=== PATIENT | male | born 1965 | race Caucasian/White ===

== ENCOUNTER → 2024-10-23 | Outpatient (CLI) | payer BC, SELFPAY ==
[2024-10-23 12:19] LABS: Absolute Neutrophil Count 4.3 X10^3/uL (2.0-7.7); Basophil# 0.04 X10^3/uL; Basophil% 0.6 % (0-1); Eosinophil# 0.02 X10^3/uL; Eosinophils% 0.3 % (0-5); Hematocrit 46.4 % (40-54); Hemoglobin 15.7 g/dL (13.0-16.5); Lymphocyte % 26.8 % (19-41); Mean Corp Hgb Conc 33.8 g/dL (32-36); Mean Corpuscular Hgb 29.3 pg (27.0-32.0); Mean Corpuscular Volume 86.6 fL (80-94); Mean Platelet Vol. 10.5 fl (6.2-12.0); Monocyte# 0.31 X10^3/uL; Monocyte% 4.9 % (0-10); NRBC Flagged by Analyzer 0 % (0-5); Neutrophil # 4.25 X10^3/uL (2.7-7.7); Neutrophil % 67.1 % (47-70); Platelet Count 259 K/mm3 (150-450); RBC Distribution Width CV 12.5 % (11.6-14.6); RBC Distribution Width SD 39.1 fl (35.1-43.9); Red Blood Count 5.36 M/mm3 (4.6-6.2); White Blood Count 6.3 K/mm3 (4.4-11.0)
[2024-10-23 12:36] LABS: AST(SGOT) 8 U/L (15-37); Alanine Aminotransfer ALT/SGPT 29 U/L (16-61); Albumin, Serum 3.7 g/dL (3.2-5.0); Alkaline Phosphatase 87 U/L (45-117); Anion Gap 6 (5-15); BUN 12 mg/dL (7-18); BUN/Creat Ratio 15.2 RATIO (10-20); Calcium,Total 9.1 mg/dL (8.5-10.1); Chloride 104 mmol/L (98-107); Cholesterol 215 mg/dL (200); Creatinine, Serum 0.79 mg/dL (0.70-1.30); EST Glomerular Filtration Rate 106 mL/min (>60); Est Glom Filt Rate - Afr Amer 129 mL/min (>60); Globulin 3.7 g/dL (2.2-4.2); Glucose 231 mg/dL (74-106); High Density Lipoprotein 48 mg/dL; PSA,Total- Diagnostic 2.56 ng/mL (0.0-4.0); Protein, Total 7.4 g/dL (6.4-8.2); Sodium Level 136 mmol/L (136-145); Triglycerides 161 mg/dL; Very Low Density Lipoprotein 32 mg/dL (5-40)
== END | disposition home or self-care (01) ==
LOC: MFPLAB 10:55
PROVIDERS: PCP Family Medicine; Referring Provider Family Medicine; Visit Provider Family Medicine
DX: Z00.00 Encounter for general adult medical examination without abnormal findings (principal); Z13.1 Encounter for screening for diabetes mellitus; Z13.220 Encounter for screening for lipoid disorders; Z12.5 Encounter for screening for malignant neoplasm of prostate
CPT/HCPCS: 36415; 80053; 80061; 83036; 84153; 85025

== ENCOUNTER 2024-12-05 07:04 | Day surgery (SDC) | payer BC, SELFPAY ==
--- NOTE | 2024-11-30 22:58 | PAT.ANESEVAL ---
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 When Was Last Pacemaker Check QUESTION #4 FULL TEXT: You/Your Family Experience fever (hyperthermia) with Anesthesia Last Oral Intake Last Oral intake: Last Oral Intake NPO since Meds taken in AM with sips of water? Meds patient instructed to take am of surgery PONV PONV - server administrator: PONV - server administrator Female No 11/30/24 14:45 HX of Motion Sickness No 11/30/24 14:45 HX of N/V After Surgery No 11/30/24 14:45 Non-Smoker No 11/30/24 14:45 Duration of Surgery greater No 11/30/24 14:45 than 60 minutes Number of Risk Factors PONV Score Height & Weight Height & Weight: Anesthesia: Height & Weight Height 6 ft 11/10/24 10:05 Respiratory Assessment Respiratory Assessment - server administrator: Respiratory Tract Infection Hx - server administrator Hx Respiratory Tract Infection No 11/30/24 14:45 STOP Sleep Apnea STOP Sleep Apnea - server administrator: STOP Sleep Apnea - server administrator Hx Hypertension No 11/30/24 14:45 Hx Sleep Apnea No 11/30/24 14:45 CPAP BIPAP Do you snore loudly (louder No 11/30/24 14:45 than talking or can be heard Do you often feel tired/ No 11/30/24 14:45 fatigued/ sleepy during daytime? Has anyone observed you stop No 11/30/24 14:45 breathing during sleep? STOP Results Negative 11/30/24 14:45 QUESTION #5 FULL TEXT : Do you snore loudly (louder than talking or can be heard through closed doors)? 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 Specify any problems Hx of Preganancy in last 3 N/A 11/30/24 14:45 Months Nurse Filling Out Transfusion NBUCHER 11/30/24 14:45 & Questions: Date: 11/30/24 11/30/24 14:45 Time: 14:46 11/30/24 14:45 Patient unable to answer at this time (ie. confused, unrespo /Reproduction History /Reproductive History - server administrator: /Reproductive Hx- server administrator Hx Now No 11/30/24 14:45 Gestational Age (in weeks): EDC: Hx Hx Para Hx Section SAB No 11/30/24 14:45 [facility] Medical History Wears contact lenses Non-smoker Chewing tobacco nicotine dependence Diabetes Home Medications ?Medication ?Instructions ?Recorded ?Last Taken ?Type glipizide 5 mg tablet 5 mg PO QDAY 11/10/24 Unknown History metformin 500 mg tablet 500 mg PO BID 11/10/24 Unknown History Allergy/AdvReac Type Severity Reaction Status Date / Time No Known Allergies Allergy Verified 12/05/24 07:14 Surgical History History of arthroscopic knee surgery Social History household members: other details: Single number of children: 0 current occupational status: employed Smoking Status: Never smoker Smokeless tobacco user: chewing tobacco alcohol intake: never substance use type: does not use Audit: Pertinent Findings Pertinent Findings Additional pertinent findings: 10/23/2024. Hemoglobin A1c is 10.0. surgeon aware. prefers to proceed Recommendation Anesthesia Recommendation Anesthesia recommendation: F/U recommended (Please inform procedural doctor of patient's hemoglobin A1c at 10.0.)
--- NOTE | 2024-12-01 12:53 | PAT.ANESEVAL ---
Pre-Assessment Diagnosis/Proposed Procedure Planned Operative Procedure(s): CSCOPE Anesthesia History Anesthesia History - manager clinical pharmacy: Anesthesia History - manager clinical pharmacy Hx Hospitalization No 11/30/24 14:45 Any Problems With Anesthesia No 11/30/24 14:45 Cholinesterase deficiency No 11/30/24 14:45 You/Your Family Experience No 11/30/24 14:45 fever (hyperthermia) with Relationship Recent Exposure to Contagious Disease Does patient have nerve No 11/30/24 14:45 stimulator Patient instructed to have device shut off --Does patient have Pacemaker or ICD? When Was Last Pacemaker Check QUESTION #4 FULL TEXT: You/Your Family Experience fever (hyperthermia) with Anesthesia Last Oral Intake Last Oral intake: Last Oral Intake NPO since Meds taken in AM with sips of water? Meds patient instructed to take am of surgery PONV PONV - manager clinical pharmacy: PONV - manager clinical pharmacy Female No 11/30/24 14:45 HX of Motion Sickness No 11/30/24 14:45 HX of N/V After Surgery No 11/30/24 14:45 Non-Smoker No 11/30/24 14:45 Duration of Surgery greater No 11/30/24 14:45 than 60 minutes Number of Risk Factors PONV Score Height & Weight Height & Weight: Anesthesia: Height & Weight Height 6 ft 11/10/24 10:05 Respiratory Assessment Respiratory Assessment - manager clinical pharmacy: Respiratory Tract Infection Hx - manager clinical pharmacy Hx Respiratory Tract Infection No 11/30/24 14:45 STOP Sleep Apnea STOP Sleep Apnea - manager clinical pharmacy: STOP Sleep Apnea - manager clinical pharmacy Hx Hypertension No 11/30/24 14:45 Hx Sleep Apnea No 11/30/24 14:45 CPAP BIPAP Do you snore loudly (louder No 11/30/24 14:45 than talking or can be heard Do you often feel tired/ No 11/30/24 14:45 fatigued/ sleepy during daytime? Has anyone observed you stop No 11/30/24 14:45 breathing during sleep? STOP Results Negative 11/30/24 14:45 QUESTION #5 FULL TEXT : Do you snore loudly (louder than talking or can be heard through closed doors)? 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 Specify any problems Hx of Preganancy in last 3 N/A 11/30/24 14:45 Months Nurse Filling Out Transfusion NBUCHER 11/30/24 14:45 & Questions: Date: 11/30/24 11/30/24 14:45 Time: 14:46 11/30/24 14:45 Patient unable to answer at this time (ie. confused, unrespo /Reproduction History /Reproductive History - manager clinical pharmacy: /Reproductive Hx- manager clinical pharmacy Hx Now No 11/30/24 14:45 Gestational Age (in weeks): EDC: Hx Hx Para Hx Section SAB No 11/30/24 14:45 COUNTS INCLUDE 234 BEDS AT THE [facility] Medical History (Updated 11/30/24 @ 14:49 by Joanie Naik) Wears contact lenses Non-smoker Chewing tobacco nicotine dependence Diabetes Home Medications ?Medication ?Instructions ?Recorded ?Last Taken ?Type glipizide 5 mg tablet 5 mg PO QDAY 11/10/24 Unknown History metformin 500 mg tablet 500 mg PO BID 11/10/24 Unknown History Allergy/AdvReac Type Severity Reaction Status Date / Time No Known Allergies Allergy Verified 11/30/24 14:44 Surgical History (Updated 11/30/24 @ 14:49 by Joanie Naik) History of arthroscopic knee surgery Social History (Updated 11/10/24 @ 10:00 by Gloria Sun) household members: other details: Single number of children: 0 current occupational status: employed Smoking Status: Never smoker Smokeless tobacco user: chewing tobacco alcohol intake: never substance use type: does not use Audit: Pertinent Findings HISTORY of Pertinent Findings History of Pertinent Findings: Additional Pertinent Findings Additional pertinent findings 10/23/2024. Hemoglobin A1c 12/01/24 12:09 is 10.0. surgeon aware. prefers to proceed Recommendation Anesthesia Recommendation Anesthesia recommendation: OPTIMIZED for anesthesia
[2024-12-05] VITALS (8 sets, daily range): BP systolic 96–128; BP diastolic 61–88; PULSE 70–77; RESP 16–20; TEMP 36.1–36.6; O2SAT 98–99; BMI 30.6
--- NOTE | 2024-12-05 | IMM_PTH ---
PATIENT: MACRINA GRAY LOC: EN U#:[id number] AGE/SX: 59/M ROOM: RE12/05/[address]: Dr. Kyle Gracia MD : 1965 BED: DIS: 12/05/2024 SPEC #: [id number] RECD: 12/06/24 11:58 STATUS: GONZÁLEZ REQ #: [id number] TATIANA: 12/05/24 00:[address]: Kyle Gracia DEPT: IMMUNOHISTOCHEMISTRY RECD BY: Keyon Elizondo ENTERED: 12/06/24 11:59 SP TYPE: IMMUNO OTHR DR: Leland Scott MD Tissues: A - Cecum, NOS B - Sigmoid colon biopsy Procedures: SMA (add) MSH2 (add) MLH-1 (add) MSH6 (add) Anti-PMS2 (add) CD31 (add) CD34 (add) CK8 (add) DESMIN (add) KI-67 (add) P53 (add) Vimentin (add) FACTOR VIII (add) Pankeratin (initial) MOC-31 (add) HER-2-RELL (initial) S-100 (add) PHYSICIAN & INSTITUTION [place] [id number] SPECIMEN INFORMATION: Tissue Source: A- Cecum polyp, B- Sigmoid polyp Clinical Info: Encounter for screening for malignant neoplasm of colon Specimen Number: [id number] A, B CPT code: 60773l2,26782t45 METHODOLOGY: Deparaffinized sections of prefer/formalin-fixed tissue or PAP/DQ stained slides are incubated with monoclonal/polyclonal antibodies/oligonucleotide probes. Localization is made via biotin free immunoperoxidase method. Appropriate controls are performed and reacted as expected. Results on target cell population are indicated in the following table: RESULTS: ANTIBODY / CLONE RESULT Block A1 Her-2neu (CB11) negative (null pattern) MOC-31 (4561) positive MLH-1 (M1) positive MSH2 (25D12) positive MSH6 (44) positive PMS2 (GNZ8748) positive Ki-67 (30-9) positive, moderate P53 (DO-7) positive, focal (wild type pattern) Block B 1 AE1-3 (AE1/AE3/PCK26) negative CK8 (66amtmS18) negative Vimentin (V9) positive CD31 (DEV/70A) negative Factor VIII (R Ag) negative CD34 (QBEnd-10) negative Actin (1A4) positive Desmin (CE-R-11) positive S-100 (4C4.9) negative Ki-67 (30-9) positive, <1% Testing for Her2 by IHC if equivocal, recommend testing for Her2 by FISH(remove/not needed) These tests were developed and their performance characteristics determined by [facility]. They may not have been cleared or approved by the U.S. Food and Drug Administration. The FDA has determined that such clearance or approval is not necessary. The above immunohistochemical/dualISH markers are ordered and reviewed by the Pathologist. INTERPRETATION: A. 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 Result of Microsatellite Instability Study: Negative (no loss of mismatch protein; no microsatellite instability detected). See comment. B. Sigmoid polyp, polypectomy: Submucosal leiomyoma. A. COMMENT: MSI markers are evaluated in the area of invasive adenocarcinoma. SJ.mr 12/07/2024
--- NOTE | 2024-12-05 | COLBX_PTH ---
PATIENT: MACRINA GRAY LOC: EN U#:[id number] AGE/SX: 59/M ROOM: RE12/05/[address]: Dr. Kyle Gracia MD : 1965 BED: DIS: 12/05/2024 SPEC #: [id number] RECD: 12/05/24 12:52 STATUS: GONZÁLEZ REEdward #: [id number] TATIANA: 12/05/24 00:[address]: Kyle Gracia DEPT: SURGICAL PATHOLOGY RECD BY: Erasto Khanna ENTERED: 12/05/24 12:53 SP TYPE: COLON BX OTHR DR: Leland Scott MD Tissues: A - Cecum, NOS B - Sigmoid colon biopsy Procedures: Surgery Specimen Level IV HEADER OPERATION: Colonoscopy, polypectomy, spot marking PRE-OP DIAGNOSIS: Encounter for screening for malignant neoplasm of colon TISSUE SUBMITTED: A- Cecum polyp, B- Sigmoid polyp MICROSCOPIC DIAGNOSIS A. 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 See cancer summary in the comment section. B. Sigmoid polyp, polypectomy: Submucosal lipoma. See comment. 12/06/2024 COMMENT A. COLON AND RECTAL POLYP CANCER SUMMARY: Tumor site - Cecum Specimen integrity - Partially fragmented Histologic type - Adenocarcinoma Histologic grade - Grade 1, well differentiated Size of invasive carcinoma - 0.4 x 0.2cm (measures microscopically) Microscopic tumor extension - Tumor invades muscularis mucosa. Lymph-Vascular invasion - Not identified Type of polyp in which invasive carcinoma arose - Tubulovillous adenoma with high grade dysplasia. Polyp size - 2.2 x 1.5 x 1.5cm (polyp with a focus of invasive carcinoma), smaller polyp- 0.7 x 0.5 x 0.4cm and multiple smaller fragments- 2 x 0.3 x 0.1cm (consists of fragments of tubulovillous adenoma). Polyp configuration: sessile Margins: Margins are uninvolved by invasive carcinoma. The invasive carcinoma is 1.5cm from the cauterized margin. Margin status noninvasive tumor - cannot be assessed (specimen is received in multiple fragments). Additional pathologic findings - None Special study- Immunohistochemistry ([id number]) for microsatellite instability (mismatch repair of protein) will be performed and the results will be reported separately. The above summary is in compliance with [employer] [place] [employer] (CAP) Cancer Protocols Checklist and [place] Joint Committee on Cancer (AJCC), Staging Manual, 8th Ed. B. Immunohistochemistry ([id number]) supports the above diagnosis. Case has been reviewed in consultation with Dr. Levy who concurs with the above diagnosis. IDC:FA MICROSCOPIC DESCRIPTION Slides are reviewed. GROSS DESCRIPTION A. Received in fixative is one container labeled with the patient's name and designated Cecum polyp. The specimen consists of a barraza-pink polyp measuring 2.2 x 1.5 x 1.5cm. Also present in the container is a smaller polyp measuring 0.7 x 0.5 x 0.4cm. Also present in the container are multiple smaller fragments of barraza soft tissue mixed with fecal material measuring in aggregate 2 x 0.3 x 0.1cm. The presumed base of the largest polyp is inked black. The entire specimen is submitted in three cassettes as follows: 1&2- largest polyp, 3- smaller polyp and smaller fragments of tissue. B. Received in fixative is one container labeled with the patient's name and designated Sigmoid polyp. The specimen consists of multiple irregular fragments of light barraza soft tissue mixed with fecal material that in aggregate measure 1.2 x 0.5 x 0.2 cm. The specimen is totally submitted in one cassette. 12/05/2024 TC:0 CPT:94911w6
--- NOTE | 2024-12-05 07:53 | PCM.PRE.AN2 ---
ASA Classification* ASA Classification ASA Classification: 2 Assessment & Plan Anesthesia* Anesthesia Assessment Anesthesia Assessment: Discussed sedation and/or anesthesia options, risks, benefits, and alternatives with patient/parents/legal guardian/POA. Questions invited. The patient/parents/legal guardian/POA seems to understand and agrees to proceed with anesthesia plan. Reviewed the physical assessment, medical history, allergy history and patient home medications list prior to surgery/procedure/anesthetic and documented any changes. Performed airway and anesthesia risk assessments. Anesthesia Type Anesthesia Type: MAC History Source History Obtained from:: Patient and Chart Anesthesia Focused Assessment* Temperature: 97.8 F Pulse Rate: 77 Blood Pressure: 128/88 Respiratory Rate: 16 Pulse Ox: 99 Oxygen Delivery Method: Room Air Airway Assessment Mouth opens: >3 cm Mallampati Score: III Teeth Condition: Lower (Patient has 1 implant on the front incisor. It is tight.) Neck Range of motion (ROM): Limited ROM (Somewhat decreased extension) Focused Labs Anesthesia Preop lab: CBC WBC 6.3 K/mm3 (4.4-11.0) 10/23/24 10:56 10/23/24 RBC 5.36 M/mm3 (4.6-6.2) 10/23/24 10:56 10/23/24 Hgb 15.7 g/dL (13.0-16.5) 10/23/24 10:56 10/23/24 Hct 46.4 % (40-54) 10/23/24 10:56 10/23/24 Plt Count 259 K/mm3 (150-450) 10/23/24 10:56 10/23/24 CHEMISTRY Potassium 4.0 mmol/L (3.5-5.1) 10/23/24 10:56 10/23/24 Sodium 136 mmol/L (136-145) 10/23/24 10:56 10/23/24 BUN 12 mg/dL (7-18) 10/23/24 10:56 10/23/24 Creatinine 0.79 mg/dL (0.70-1.30) 10/23/24 10:56 10/23/24 Glucose 231 mg/dL (74-106) H 10/23/24 10:56 10/23/24 COAG Pre-Assessment Diagnosis/Proposed Procedure Planned Operative Procedure(s): CSCOPE Anesthesia History 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 When Was Last Pacemaker Check QUESTION #4 FULL TEXT: You/Your Family Experience fever (hyperthermia) with Anesthesia Last Oral Intake Last Oral intake: Last Oral Intake NPO since 00:00 12/05/24 07:30 Meds taken in AM with sips of No 12/05/24 07:30 water? Meds patient instructed to take am of surgery PONV PONV - athlete manager: PONV - athlete manager Female No 11/30/24 14:45 HX of Motion Sickness No 11/30/24 14:45 HX of N/V After Surgery No 11/30/24 14:45 Non-Smoker No 11/30/24 14:45 Duration of Surgery greater No 11/30/24 14:45 than 60 minutes Number of Risk Factors PONV Score Height & Weight Height & Weight: Anesthesia: Height & Weight Height 6 ft 12/05/24 07:30 Weight: 102.4 kg 12/05/24 07:30 Body Mass Index (BMI) 30.6 12/05/24 07:30 Respiratory Assessment Respiratory Assessment - athlete manager: Respiratory Tract Infection Hx - athlete manager Hx Respiratory Tract Infection No 11/30/24 14:45 STOP Sleep Apnea STOP Sleep Apnea - athlete manager: STOP Sleep Apnea - athlete manager Hx Hypertension No 11/30/24 14:45 Hx Sleep Apnea No 11/30/24 14:45 CPAP BIPAP Do you snore loudly (louder No 11/30/24 14:45 than talking or can be heard Do you often feel tired/ No 11/30/24 14:45 fatigued/ sleepy during daytime? Has anyone observed you stop No 11/30/24 14:45 breathing during sleep? STOP Results Negative 11/30/24 14:45 QUESTION #5 FULL TEXT : Do you snore loudly (louder than talking or can be heard through closed doors)? 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 Specify any problems Hx of Preganancy in last 3 N/A 11/30/24 14:45 Months Nurse Filling Out Transfusion NBUCHER 11/30/24 14:45 & Questions: Date: 11/30/24 11/30/24 14:45 Time: 14:46 11/30/24 14:45 Patient unable to answer at this time (ie. confused, unrespo /Reproduction History /Reproductive History - athlete manager: /Reproductive Hx- athlete manager Hx Now No 11/30/24 14:45 Gestational Age (in weeks): EDC: Hx Hx Para Hx Section SAB No 11/30/24 14:45 [facility] Medical History (Updated 11/30/24 @ 14:49 by Joanie Naik) Wears contact lenses Non-smoker Chewing tobacco nicotine dependence Diabetes Home Medications ?Medication ?Instructions ?Recorded ?Last Taken ?Type glipizide 5 mg tablet 5 mg PO QDAY 11/10/24 Unknown History metformin 500 mg tablet 500 mg PO BID 11/10/24 Unknown History Allergy/AdvReac Type Severity Reaction Status Date / Time No Known Allergies Allergy Verified 12/05/24 07:14 Surgical History (Updated 11/30/24 @ 14:49 by Joanie Naik) History of arthroscopic knee surgery Social History (Updated 11/10/24 @ 10:00 by Gloria Sun) household members: other details: Single number of children: 0 current occupational status: employed Smoking Status: Never smoker Smokeless tobacco user: chewing tobacco alcohol intake: never substance use type: does not use Review of Systems (Anesthesia) ROS Narrative System reviewed and no additional complaints, except as documented.
[2024-12-05 07:57] LABS: Bedside Glucose 84 mg/dL (74-106)
--- NOTE | 2024-12-05 08:27 | HP.PCM_ITS ---
HPI - General General Date of Admission: 12/05/24 Date of Service: 12/05/24 Chief Complaint: Screening colonoscopy HPI Narrative MACRINA GRAY, is a 59 M who presents for screening colonoscopy. He has no prior colonoscopy. No family history of colon polyps or colon cancers. No GI symptoms to speak of. [facility] Medical History Wears contact lenses Non-smoker Chewing tobacco nicotine dependence Diabetes Home Medications ?Medication ?Instructions ?Recorded ?Last Taken ?Type glipizide 5 mg tablet 5 mg PO QDAY 11/10/24 Unknow n History metformin 500 mg tablet 500 mg PO BID 11/10/24 Unkno wn History Allergy/AdvReac Type Severity Reaction Status Date / Time No Known Allergies Allergy Verified 12/05/24 07:14 Surgical History History of arthroscopic knee surgery Social History household members: other details: Single number of children: 0 current occupational status: employed Smoking Status: Never smoker Smokeless tobacco user: chewing tobacco alcohol intake: never substance use type: does not use ROS Constitutional Constitutional: Reports systems reviewed and no addt'l complaints, except as documented Eyes Eyes: Reports systems reviewed and no addt'l complaints, except as documented ENT HEENT: Reports systems reviewed and no addt'l complaints, except as documented Cardiovascular Cardiovascular: Reports systems reviewed and no addt'l complaints, except as documented Respiratory/Chest Respiratory/Chest: Reports systems reviewed and no addt'l complaints, except as documented Gastrointestinal Gastrointestinal: Reports systems reviewed and no addt'l complaints, except as documented Vital Signs Vital Signs Vital Signs: 12/05/24 07:30 12/05/24 07:30 12/05/24 07:58 Temperature 97.8 F 97.8 F Temperature Source Temporal Pulse Rate 77 77 Respiratory Rate 16 16 Respiratory Pattern Normal Blood Pressure 128/88 H 128/88 H Blood Pressure Mean 101 Blood Pressure Source Monitor Blood Pressure Position Semi-Fowlers Blood Pressure Location Left Arm Pulse Ox 99 99 Oxygen Delivery Method Room Air Room Air Weight Weight: 225 lb 12.054 oz Body Mass Index (BMI) 30.6 Physical Exam Const alert, oriented x3 and no apparent distress Results Lab / Micro Data Labs: Laboratory Results - last 24 hr 12/05/24 07:37: POC Glucose 84 Assessment & Plan Assessment/Plan (1) Encounter for screening for malignant neoplasm of colon: PLAN: Plan Patient is a 59-year-old male in need of a screening colonoscopy. He has no prior colonoscopy history. No family history of colon polyps or colon cancers. No GI symptoms. We discussed the details of the planned procedure and he wishes to proceed. This will begin momentarily.
--- NOTE | 2024-12-05 09:37 | OP.COLON_ITS ---
Patient Name: Ovidio Rodriguez Procedure Date: 12/05/2024 8:21 AM Date of : 1965 Age: 59 Procedure: Colonoscopy Indications: Screening for colorectal malignant neoplasm Providers: Kyle Gracia MD Referring MD: Leland Scott Md Medicines: Monitored Anesthesia Care Patient Profile: Refer to note in patient chart for documentation of history and physical. Last Colonoscopy: none. The patient's first colonoscopy is today. Complications: No immediate complications. Estimated blood loss: Minimal. Procedure: Pre-Anesthesia Assessment: - Prior to the procedure, a History and Physical was performed, and patient medications and allergies were reviewed. The patient's tolerance of previous anesthesia was also reviewed. The risks and benefits of the procedure and the sedation options and risks were discussed with the patient. All questions were answered, and informed consent was obtained. Prior Anticoagulants: The patient has taken no anticoagulant or antiplatelet agents. ASA Grade Assessment: II - A patient with mild systemic disease. After reviewing the risks and benefits, the patient was deemed in satisfactory condition to undergo the procedure. After I obtained informed consent, the scope was passed under direct vision. Throughout the procedure, the patient's blood pressure, pulse, and oxygen saturations were monitored continuously. The colonoscope was introduced through the anus and advanced to the cecum, identified by appendiceal orifice and ileocecal valve. The ileocecal valve, appendiceal orifice, and rectum were photographed. The entire colon was well visualized. The colonoscopy was performed without difficulty. The patient tolerated the procedure well. The quality of the bowel preparation was adequate. Moderate Sedation: See the other procedure note for documentation of moderate sedation with intraservice time. Scope In: 8:47:10 AM Scope Out: 9:29:49 AM Total Procedure Duration Time 0 hours 42 minutes 39 seconds Findings: The perianal and digital rectal examinations were normal. Multiple small-mouthed diverticula were found in the sigmoid colon. A 22 mm polyp was found in the cecum. The polyp was semi-pedunculated. The polyp was removed with a hot snare. Resection and retrieval were complete. Verification of patient identification for the specimen was done by the nurse using the patient's name, date and medical record number. Estimated blood loss was minimal. Area was successfully injected with 4 mL Spot (carbon black) for tattooing. Estimated blood loss was minimal. An 8 mm polyp was found in the sigmoid colon. The polyp was semi-pedunculated. The polyp was removed with a hot snare. Resection and retrieval were complete. Verification of patient identification for the specimen was done by the nurse using the patient's name, date and medical record number. Estimated blood loss was minimal. The exam was otherwise without abnormality. Impression: - Diverticulosis in the sigmoid colon. - One 22 mm polyp in the cecum, removed with a hot snare. Resected and retrieved. Injected. - One 8 mm polyp in the sigmoid colon, removed with a hot snare. Resected and retrieved. - The examination was otherwise normal. Recommendation: - Discharge patient to home (ambulatory). - High fiber diet indefinitely. - Await pathology results. - Repeat colonoscopy in 1 year for surveillance. - Return to my office PRN. - Continue present medications. Procedure Code(s): --- Professional --- 52874, Colonoscopy, flexible; with removal of tumor(s), polyp(s), or other lesion(s) by snare technique [id number], Colonoscopy, flexible; with directed submucosal injection(s), any substance Diagnosis Code(s): --- Professional --- Z12.11, Encounter for screening for malignant neoplasm of colon D12.0, Benign neoplasm of cecum K57.30, Diverticulosis of large intestine without perforation or abscess without bleeding D12.5, Benign neoplasm of sigmoid colon CPT copyright 2021 [employer]. All rights reserved. The codes documented in this report are preliminary and upon residential director review may be revised to meet current compliance requirements. Kyle Gracia MD 12/05/2024 9:36:55 AM This report has been signed electronically. Number of Addenda: 0 Note Initiated On: 12/05/2024 8:21 AM
--- NOTE | 2024-12-05 09:37 | OP.CCLET_ITS ---
12/05/2024 Leland Scott Md Re : Colonoscopy procedure for Ovidio Rodriguez Dear Sonia This procedure was performed on Thursday, December 05, 2024. My impressions and recommendations are as follows: Impressions : - Diverticulosis in the sigmoid colon. - One 22 mm polyp in the cecum, removed with a hot snare. Resected and retrieved. Injected. - One 8 mm polyp in the sigmoid colon, removed with a hot snare. Resected and retrieved. - The examination was otherwise normal. Recommendations : - Discharge patient to home (ambulatory). - High fiber diet indefinitely. - Await pathology results. - Repeat colonoscopy in 1 year for surveillance. - Return to my office PRN. - Continue present medications. My findings are described in the full procedure note, which is enclosed. If I can be of further assistance, please feel free to contact me at . Sincerely, Kyle Gracia MD 12/05/2024 9:36:55 AM This report has been signed electronically.
--- NOTE | 2024-12-05 10:30 | PCM.POST.ANE ---
Anesthesia: Postop Eval I Current Vital Signs Temperature: 96.9 F Pulse Rate: 70 Blood Pressure: 118/80 Respiratory Rate: 20 Pulse Ox: 98 Assessment Airway patent: Yes Spontaneous unlabored respirations: Yes nausea: No Vomiting: No Anesthesia Complication: No Fluid Hydration Crystalloid volume administer (ml): 10 Total IV fluid infused: 10 Progress Note Anesthesia document: Postop Eval 1 completed: Yes
--- NOTE | 2024-12-05 10:31 | POSTOPAN2_ITS ---
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.CSIR Spontaneous unlabored Yes 12/05/24 10:30 WAFER POLISHING LEAD WORKER.CSIR respirations Mental status nausea No 12/05/24 10:30 WAFER POLISHING LEAD WORKER.CSIR Vomiting No 12/05/24 10:30 WAFER POLISHING LEAD WORKER.CSIR Anesthesia Postop Eval I: Fluid Summary Crystalloid volume administer 10 12/05/24 10:30 WAFER POLISHING LEAD WORKER.CSIR (ml) Colloids volume administered ( ml) Blood Product volume administered (ml) Total IV fluid infused 10 12/05/24 10:30 WAFER POLISHING LEAD WORKER.CSIR Anesthesia Postop Eval I: Summary Notes Anesthesia Complication No 12/05/24 10:30 WAFER POLISHING LEAD WORKER.CSIR Anesthesia Complication Comment: Post-operative progress note Anesthesia: Postop Eval II Evaluation Mental status: Awake and Calm Pain Level: 0 nausea: No Vomiting: No
--- NOTE | 2024-12-05 10:31 | PCM.POSTANE2 ---
Anesthesia Postop Eval I Sum Postop Eval Completion status Anesthesia document: Postop Eval 1 completed: Yes Anesthesia Postop Eval I Summary Anesthesia Postop Eval I Summary: Anesthesia Postop Eval I: Assessment Summary Airway patent Yes 12/05/24 10:30 WAITER/WAITRESS ROOM SERVICE.CSIR Spontaneous unlabored Yes 12/05/24 10:30 WAITER/WAITRESS ROOM SERVICE.CSIR respirations Mental status nausea No 12/05/24 10:30 WAITER/WAITRESS ROOM SERVICE.CSIR Vomiting No 12/05/24 10:30 WAITER/WAITRESS ROOM SERVICE.CSIR Anesthesia Postop Eval I: Fluid Summary Crystalloid volume administer 10 12/05/24 10:30 WAITER/WAITRESS ROOM SERVICE.CSIR (ml) Colloids volume administered ( ml) Blood Product volume administered (ml) Total IV fluid infused 10 12/05/24 10:30 WAITER/WAITRESS ROOM SERVICE.CSIR Anesthesia Postop Eval I: Summary Notes Anesthesia Complication No 12/05/24 10:30 WAITER/WAITRESS ROOM SERVICE.CSIR Anesthesia Complication Comment: Post-operative progress note Anesthesia: Postop Eval II Evaluation Mental status: Awake and Calm Pain Level: 0 nausea: No Vomiting: No
== END 2024-12-05 10:12 | disposition home or self-care (01) ==
LOC: EN 07:05 → AC 07:07
PROVIDERS: PCP Family Medicine; Referring Provider Family Medicine; Visit Provider Surgery
PROC: 0DJD8ZZ Inspection of Lower Intestinal Tract, Via Natural or Artificial Opening Endoscopic (ICD-10-PCS; CPT 45378; principal; 2024-12-05 08:10)
DX: Z12.11 Encounter for screening for malignant neoplasm of colon (principal); C18.0 Malignant neoplasm of cecum; E11.9 Type 2 diabetes mellitus without complications; D12.5 Benign neoplasm of sigmoid colon; K57.30 Diverticulosis of large intestine without perforation or abscess without bleeding; F17.220 Nicotine dependence, chewing tobacco, uncomplicated; Z79.84 Long term (current) use of oral hypoglycemic drugs
CPT/HCPCS: 45385; 45381; 81002; 82962; 88305; 88341; 88342; A4216; A4648

== ENCOUNTER → 2024-12-22 | Outpatient (CLI) | payer BC, SELFPAY ==
[2024-12-22 10:41] LABS: Hemoglobin A1c 6.6 % (3.8-5.6)
[2024-12-23 04:07] LABS: Carcinoembryonic Antigen 1.7 ng/mL (0.0-4.7)
== END | disposition home or self-care (01) ==
LOC: MFPLAB 09:03
PROVIDERS: Surgery; PCP Family Medicine; Referring Provider Family Medicine; Visit Provider Family Medicine
DX: E11.65 Type 2 diabetes mellitus with hyperglycemia (principal); C18.9 Malignant neoplasm of colon, unspecified
CPT/HCPCS: 36415; 82378; 83036

== ENCOUNTER 2025-02-14 16:26 | Inpatient (IN) | payer BC, SELFPAY ==
--- NOTE | 2025-02-08 11:07 | EKG12_ITS ---
Test Reason : PREOP Blood Pressure : */* mmHG Vent. Rate : 88 BPM Atrial Rate : 88 BPM P-R Int : 150 ms QRS Dur : 80 ms QT Int : 364 ms P-R-T Axes : 53 63 48 degrees QTcB Int : 440 ms Normal sinus rhythm Normal ECG Confirmed by MALLORY KENT, GOYO ([id number]), editor at large GAVIOTA ANDERSEN ([id number]) on 02/09/2025 7:00:39 AM Referred By: Kyle Gracia Confirmed By: GOYO TEJADA MD
[2025-02-08 11:47] LABS: Hemoglobin 14.5 g/dL (13.0-16.5); Mean Corp Hgb Conc 33.7 g/dL (32-36); Mean Corpuscular Hgb 30.2 pg (27.0-32.0); Mean Corpuscular Volume 89.6 fL (80-94); Mean Platelet Vol. 10.1 fl (6.2-12.0); Platelet Count 304 K/mm3 (150-450); RBC Distribution Width CV 13.1 % (11.6-14.6); RBC Distribution Width SD 42.9 fl (35.1-43.9); White Blood Count 8.2 K/mm3 (4.4-11.0)
[2025-02-08 12:22] LABS: Magnesium 2.1 mg/dL (1.5-2.2)
[2025-02-08 13:01] LABS: Anion Gap 12 (5-15); BUN 17 mg/dL (4-19); Calcium,Total 9.5 mg/dL (7.6-11.0); Carbon Dioxide 23.1 mmol/L (21.0-32.0); Chloride 103 mmol/L (98-108); Creatinine, Serum 1.13 mg/dL (0.70-1.20); EST Glomerular Filtration Rate 74 (>60); Glucose 97 mg/dL (70-99); Potassium 4.1 mmol/L (3.3-5.1); Sodium Level 139 mmol/L (133-145)
[2025-02-14] VITALS (16 sets, daily range): BP systolic 88–125; BP diastolic 61–80; PULSE 67–82; RESP 16–18; TEMP 36.4–37.1; O2SAT 95–100; BMI 28.7
[2025-02-14] MEDS: Acetaminophen 500 MG Tablet 1000 MG PO ×3 (06:13→17:54)
[2025-02-14] MEDS: Gabapentin 600 MG Tablet PO (06:13)
[2025-02-14] MEDS: Magnesium 1 GM over 15 mins IV (06:14)
[2025-02-14] MEDS: Lactated Ringers 1,000 ML 40 ML IV ×3 (06:15→11:46)
--- NOTE | 2025-02-14 06:45 | PCM.PRE.AN2 ---
ASA Classification* ASA Classification ASA Classification: 2 Assessment & Plan Anesthesia* Anesthesia Assessment Anesthesia Assessment: Discussed sedation and/or anesthesia options, risks, benefits, and alternatives with patient/parents/legal guardian/POA. Questions invited. The patient/parents/legal guardian/POA seems to understand and agrees to proceed with anesthesia plan. Reviewed the physical assessment, medical history, allergy history and patient home medications list prior to surgery/procedure/anesthetic and documented any changes. Performed airway and anesthesia risk assessments. Anesthesia Type Anesthesia Type: General Anesthesia Focused Assessment* Temperature: 98.7 F Pulse Rate: 74 Blood Pressure: 125/80 Respiratory Rate: 17 Pulse Ox: 100 Airway Assessment Mouth opens: >3 cm Mallampati Score: II Focused Labs Anesthesia Preop lab: CBC WBC 8.2 K/mm3 (4.4-11.0) 02/08/25 11:02/08/25 RBC 4.80 M/mm3 (4.6-6.2) 02/08/25 11:02/08/25 Hgb 14.5 g/dL (13.0-16.5) 02/08/25 11:02/08/25 Hct 43.0 % (40-54) 02/08/25 11:02/08/25 Plt Count 304 K/mm3 (150-450) 02/08/25 11:02/08/25 CHEMISTRY Potassium 4.1 mmol/L (3.3-5.1) 02/08/25 11:02/08/25 Sodium 139 mmol/L (133-145) 02/08/25 11:02/08/25 Magnesium 2.1 mg/dL (1.5-2.2) 02/08/25 11:02/08/25 BUN 17 mg/dL (4-19) 02/08/25 11:02/08/25 Creatinine 1.13 mg/dL (0.70-1.20) 02/08/25 11:02/08/25 Glucose 97 mg/dL (70-99) 02/08/25 11:02/08/25 POC Glucose 84 mg/dL (74-106) 12/05/24 07:37 12/05/24 COAG Pre-Assessment Diagnosis/Proposed Procedure Planned Operative Procedure(s): LAP RIGHT HEMICOLECTOMY WITH ANASTOMOSIS Anesthesia History Anesthesia History - commercial designer: Anesthesia History - commercial designer Hx Hospitalization No 01/31/25 15:09 Any Problems With Anesthesia No 01/31/25 15:09 Cholinesterase deficiency No 01/31/25 15:09 You/Your Family Experience No 01/31/25 15:09 fever (hyperthermia) with Relationship Recent Exposure to Contagious No 02/14/25 06:15 Disease Does patient have nerve No 01/31/25 15:09 stimulator Patient instructed to have device shut off --Does patient have Pacemaker No 02/14/25 06:15 or ICD? When Was Last Pacemaker Check QUESTION #4 FULL TEXT: You/Your Family Experience fever (hyperthermia) with Anesthesia Last Oral Intake Last Oral intake: Last Oral Intake NPO since 03:30 02/14/25 06:15 Meds taken in AM with sips of Yes 02/14/25 06:15 water? Meds patient instructed to see home med list 02/14/25 06:15 take am of surgery PONV PONV - commercial designer: PONV - commercial designer Female No 01/31/25 15:09 HX of Motion Sickness No 01/31/25 15:09 HX of N/V After Surgery No 01/31/25 15:09 Non-Smoker No 01/31/25 15:09 Duration of Surgery greater Yes 01/31/25 15:09 than 60 minutes Number of Risk Factors 1 01/31/25 15:09 PONV Score Low Risk 01/31/25 15:09 Height & Weight Height & Weight: Anesthesia: Height & Weight Height 6 ft 02/14/25 06:15 Weight: 96 kg 02/14/25 06:15 Body Mass Index (BMI) 28.7 02/14/25 06:15 Respiratory Assessment Respiratory Assessment - commercial designer: Respiratory Tract Infection Hx - commercial designer Hx Respiratory Tract Infection No 01/31/25 15:09 STOP Sleep Apnea STOP Sleep Apnea - commercial designer: STOP Sleep Apnea - commercial designer Hx Hypertension No 01/31/25 15:09 Hx Sleep Apnea No 01/31/25 15:09 CPAP BIPAP Do you snore loudly (louder Yes 01/31/25 15:09 than talking or can be heard Do you often feel tired/ No 01/31/25 15:09 fatigued/ sleepy during daytime? Has anyone observed you stop No 01/31/25 15:09 breathing during sleep? STOP Results Negative 01/31/25 15:09 QUESTION #5 FULL TEXT : Do you snore loudly (louder than talking or can be heard through closed doors)? Tobacco Use History Tobacco Use History - commercial designer: Tobacco Use History - commercial designer Tobacco Use Smoking Status Current every day smoker 01/31/25 15:09 Hx Tobacco Use Yes 01/31/25 15:09 Years Smoking Packs Smoked per Day Smoking Cessation Date was within the last 15 years Hx Smoking Cessation Date Hx Smoking Cessation Counseling Hematologic Medial History Hematologic Hx - commercial designer: Hematologic Medical Hx - rn clinical documentation specialist Hx of Blood Transfusion No 01/31/25 15:09 Hx of Transfusion in last 3 No 01/31/25 15:09 Months Date of Last Transfusion (if within last 3 months) Ever experience any problems No 01/31/25 15:09 with transfusion(s)? Specify any problems Hx of Preganancy in last 3 N/A 01/31/25 15:09 Months Nurse Filling Out Transfusion DSCHRIBER 01/31/25 15:09 & Questions: Date: 01/31/25 01/31/25 15:09 Time: 15:11 01/31/25 15:09 Patient unable to answer at this time (ie. confused, unrespo /Reproduction History /Reproductive History - commercial designer: /Reproductive Hx- commercial designer Hx Now No 01/31/25 15:09 Gestational Age (in weeks): EDC: Hx Hx Para Hx Section SAB No 01/31/25 15:09 Active Medications Active Medications: Current Medications Generic Name Dose Route Start Last Admin Trade Name Freq PRN Reason Stop Dose Admin Acetaminophen 1,000 mg 02/14/25 07:30 02/14/25 06:13 Acetaminophen 500 Mg Tablet PO 02/14/25 07:31 1,000 mg PREOP ONE Administration Gabapentin 600 mg 02/14/25 07:30 02/14/25 06:13 Gabapentin 600 Mg Tablet PO 02/14/25 07:31 600 mg PREOP ONE Administration Cefotetan Disodium 2 gm/ 100 mls @ 200 mls/hr 02/14/25 07:30 Sodium Chloride IV 02/14/25 07:59 INTRAOP ONE Lactated Ringer's 1,000 mls @ 40 mls/hr 02/14/25 07:30 02/14/25 06:15 IV 02/15/25 08:29 40 mls/hr .Q25H ONE Administration Lactated Ringer's 1,000 mls @ 40 mls/hr 02/14/25 07:30 IV .Q25H FREDY Magnesium Sulfate 1 gm/ 102 mls @ 408 mls/hr 02/14/25 07:30 02/14/25 06:14 Dextrose IV 02/14/25 07:44 408 mls/hr X1 ONE Administration Insulin Human Lispro 0 unit 02/14/25 07:30 Insulin Lispro 100 Unit/Ml Insuln.Pen SC Q4H PRN PRN BG >/= 180, SEE PROTOCOL Protocol PFSH Medical History Colon cancer Wears contact lenses Chewing tobacco nicotine dependence Diabetes Home Medications ?Medication ?Instructions ?Recorded ?Last Taken ?Type glipizide 5 mg tablet 5 mg PO QDAY DIABETES 11/10/24 02/12/25 History metformin 500 mg tablet 500 mg PO BID DIABETES 11/10/24 02/12/25 History metronidazole 500 mg tablet 500 mg PO .COMPLEX preop #6 tabs 02/12/25 02/14/25 Rx neomycin 500 mg tablet 500 mg PO .COMPLEX pre-op 02/12/25 02/14/25 Rx antibiotics #6 tabs Allergy/AdvReac Type Severity Reaction Status Date / Time No Known Allergies Allergy Verified 02/14/25 06:12 Surgical History Hx of colonoscopy History of arthroscopic knee surgery Social History household members: other details: Single number of children: 0 current occupational status: employed Smoking Status: Current every day smoker tobacco type: smokeless tobacco Smokeless tobacco user: chewing tobacco alcohol intake: never substance use type: does not use Review of Systems (Anesthesia) ROS Narrative System reviewed and no additional complaints, except as documented.
[2025-02-14 06:53] LABS: Bedside Glucose 112 mg/dL (74-106)
--- NOTE | 2025-02-14 07:15 | PCM.HP.STD ---
HPI - General General Date of Admission: 02/14/25 Date of Service: 02/14/25 Chief Complaint: colon CA HPI Narrative MACRINA GRAY, is a 59 M who presents for right colectomy. was found to have cecal polyp that contained small focus or CA. recommended resection [facility] Medical History Colon cancer Wears contact lenses Chewing tobacco nicotine dependence Diabetes Home Medications ?Medication ?Instructions ?Recorded ?Last Taken ?Type glipizide 5 mg tablet 5 mg PO QDAY DIABETES 11/10/24 02/12/25 History metformin 500 mg tablet 500 mg PO BID DIABETES 11/10/24 02/12/25 History metronidazole 500 mg tablet 500 mg PO .COMPLEX preop #6 tabs 02/12/25 02/14/25 Rx neomycin 500 mg tablet 500 mg PO .COMPLEX pre-op 02/12/25 02/14/25 Rx antibiotics #6 tabs Allergy/AdvReac Type Severity Reaction Status Date / Time No Known Allergies Allergy Verified 02/14/25 06:12 Surgical History Hx of colonoscopy History of arthroscopic knee surgery Social History household members: other details: Single number of children: 0 current occupational status: employed Smoking Status: Current every day smoker tobacco type: smokeless tobacco Smokeless tobacco user: chewing tobacco alcohol intake: never substance use type: does not use Vital Signs Vital Signs Vital Signs: 02/14/25 06:15 02/14/25 06:15 02/14/25 06:45 Temperature 98.7 F 98.7 F Temperature Source Temporal Pulse Rate 74 74 Respiratory Rate 17 17 Respiratory Pattern Normal Blood Pressure 125/80 H 125/80 H Blood Pressure Mean 95 Blood Pressure Source Monitor Blood Pressure Position Semi-Fowlers Blood Pressure Location Right Arm Pulse Ox 100 100 Oxygen Delivery Method Room Air Weight Weight: 211 lb 10.3 oz Body Mass Index (BMI) 28.7 Physical Exam Const alert, oriented x3 and no apparent distress Results Lab / Micro Data 02/08/25 11:27 02/08/25 11:27 Labs: Laboratory Results - last 24 hr 02/14/25 06:00: POC Glucose 112 H Assessment & Plan Assessment/Plan (1) Colon cancer: PLAN: lap right colon planned for today
--- NOTE | 2025-02-14 07:30 | COL._PTH ---
PATIENT: MACRINA GRAY LOC: MS3 U#:[id number] AGE/SX: 59/M ROOM: [facility] [place]02/14/[address]: Dr. Kyle Gracia MD : 1965 BED: 1 DIS: 02/16/2025 SPEC #: [id number] RECD: 02/14/25 09:42 STATUS: GONZÁLEZ HANKINS #: [id number] TATIANA: 02/14/25 07:[address]: Kyle Gracia DEPT: SURGICAL PATHOLOGY RECD BY: Cruz Dexter ENTERED: 02/14/25 10:19 SP TYPE: COLON OTHR DR: Leland Scott MD Tissues: A - Colon, NOS Procedures: Surgery Specimen Level HEADER OPERATION: ERAS, laparoscopic, right tan colectomy with anastomosis PRE-OP DIAGNOSIS: Colon cancer TISSUE SUBMITTED: A- Right colon MICROSCOPIC DIAGNOSIS A. Right colon, terminal ileum and appendix, colon cancer, right hemicolectomy: * Negative for adenocarcinoma - see Comment. * Tubular adenoma x1 (0.2 cm), negative for high grade dysplasia. * Sessile serrated lesion x1. * Diverticulosis, abundant tattoo pigment. * Viable end resection and radial margins, negative for neoplasia. * Appendix with no specific pathologic change (incidental). * Fourteen pericolonic lymph nodes negative for metastasis (0/14). 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 MICROSCOPIC DESCRIPTION Slides are reviewed. GROSS DESCRIPTION A. Received in formalin in a container labeled with the patient's name, date of , and right colon is an ileocecectomy specimen received with 2 stapled margins. The specimen consists of a terminal ileum (5.5 x 2.0 cm), colon (13 x 5 cm), attached appendix (6 x 0.6 cm), and attached pericolonic fat (6.5 cm in greatest thickness). The serosa is barraza-pink and predominantly smooth with some areas of creeping fat and a 6.5 x 5.3 cm area of black tattoo ink. The tattoo ink is situated 5.5 cm from the proximal margin and 6.5 cm from the distal margin. The specimen is opened to reveal a 1.6 x 1.0 cm ill-defined, puckered possible scar with an overlying 0.3 x 0.3 x 0.2 cm sessile polyp. The puckered area corresponds to the tattoo ink and is situated 7.3 cm from the proximal margin, 7.5 cm from the distal margin, and approximately 5 cm to the closest pericolonic fat resection margin. Serial sections of the puckered area reveal that it appears confined to the mucosa. Within the large bowel, situated approximately 1.5, 1.8, and 7.5 cm from the puckered area are 3 barraza-pink, sessile possible polyps ranging from 0.2 x 0.2 x 0.2 cm to 0.7 x 0.5 x 0.2 cm. Each is situated greater than 5 cm from the margins and are confined to the mucosa. No distinct mass lesion is grossly recognized. The remaining mucosa is barraza-pink, smooth, and glistening with typical haustral folds and an average wall thickness of 0.7 cm. The appendix is sectioned to reveal a 0.3 cm lumen with unremarkable alvarez. The attached fat is searched for lymph node candidates; 16 pink-valladares, rubbery lymph node candidates are identified ranging from 0.2 x 0.2 x 0.2 cm to 0.7 x 0.7 x 0.6 cm. [employer] sections:A1. Proximal margin, en faceA2. Distal margin, en faceA3. Closest pericolonic fat margin, en faceA4-6. Puckered area, entirely submitted in full-thickness sectionsA7. Adjacent, unremarkable mucosa between puckered area and polypsA8. Sessile polyps x 3, entirely submittedA9. Ileocecal rxbahC51. CeoiwlurG23. 6 lymph located, wholeA 12. 6 lymph node candidates, wholeA 13. 2 lymph node candidates, each bisected and 1 inked blackA 14. 2 lymph node candidates, 1 bisected and inked black and 1 trisected no ink [facility] 02/19/2025 CPT:84130
[2025-02-14] MEDS: Cefotetan 2 GM in 0.9% Normal Saline (100mL MB+) 100 ML IV (07:41)
[2025-02-14] MEDS: 0.9% Normal Saline (Pres. free 10 ML Vial (09:25)
[2025-02-14] MEDS: BUPIVACAINE LIPOSOME/PF 20 ML VIAL OPERA.SITE (09:25)
[2025-02-14] MEDS: Bupivacaine 0.25% 30 ML Vial (09:25)
--- NOTE | 2025-02-14 09:47 | PCM.OPRPT ---
Oncology: Genie Requirements . Oncology surgical intervention performed: Colon resection for colon cancer performed Colon Resection - Colon Cancer: Synoptic Portion: Element Response Options Operation performed with curative intent. Yes Tumor location Cecum Extent of colon and vascular resection Right hemicolectomy ? ileocolic, right colic (if present) Multi Select Codes Digestive Digestive CPT Codes: 45681 Laparo partial colectomy (lap right colectomy with anastomosos ) Endocrine,Ocular,Nerv, Auditory Endocrine,Ocular,Nerv, Auditory CPT Codes: 38642 Tap block unil by injection Operative Report (Standard) Operative Information Date of Procedure: 02/14/25 Pre-Operative Diagnosis: colon cancer Post-Operative Diagnosis: same Surgery/Procedure Performed: 1. laparoscopic right colectomy with anastomosis 2. NATALIIA block delivery stock clerk: Yes Nurse Midwife/Clinical Instructor: Reena Kilgore Tasks completed by assistance specialist: Closing, Hemostasis: Electrocautery, Retracting and Other (holding camera) Additional assistant strength coach?: No Type of Anesthesia: General and Local (NATALIIA) RN Documented Start/Stop Times: Operation Date: 02/14/25 07:30 Case Time Into Pre-Op 02/14/25 05:49 Out of Pre-Op 02/14/25 07:25 Anesthesia Start 02/14/25 07:29 Into Room 02/14/25 07:29 Procedure Start 02/14/25 07:52 Procedure End 02/14/25 09:50 Procedure Start Time: 07:52 Procedure Stop Time: 09:50 Select all DRAINS/GRAFTS/IMPLANTS that apply: None Special Medications: pre op ABX IV Estimated Blood Loss: 40 ml Specimen collected: Yes Description of specimen(s) removed: right colon Description of surgery: The patient is a 59-year-old male who recently underwent a screening colonoscopy and was found to have a fairly sizable cecal polyp. This was removed with a snare.. The base was removed in a somewhat piecemeal manner since this was a fairly sizable polyp and was fairly flat. This was inked for possible later resection if indicated. Pathology came back with a small focus of infiltrating ductal carcinoma measuring about 4 x 2 mm. Since this was consistent with a small malignancy, I recommended a laparoscopic right hemicolectomy. We discussed the details of the planned procedure in the office including the risks benefits and alternatives. He wished to proceed. Patient presents today for elective right colectomy. Preoperative antibiotics were given and a timeout was performed. He was placed supine on the operative table with arms outstretched on arm boards. A general endotracheal anesthesia was induced. His arms were then comfortably tucked at his side. The abdomen was prepped and draped in the usual sterile manner. A 5 mm incision was made just above the umbilicus which a 5 mm trocar was placed optically. This was placed without incident. Once in place the abdomen is then fully insufflated with CO2 gas a 5 mm 0 degree scope was inserted. There were no signs of bowel or vascular injury next 2 additional 5 mm trocars were placed on the right side of the abdomen under direct visualization. These were placed without difficulty. Next, a bilateral laparoscopic tap block was performed using Exparel. This was performed by injecting a total of 40 cc of local/Exparel solution. This was performed laparoscopically by watching the needle inject local anesthetic just above the peritoneum. This was performed along the entire lateral aspect of the abdomen bilaterally. I then later upsized the umbilical trocar to a 10 mm trocar so that we could utilize a 10 mm scope. The patient was placed in some mild Trendelenburg positioning with some roll to the left to provide further exposure to the right colon. The cecum and right colon were readily identifiable. There was quite a bit of ink from the colonoscopy. Much of the right colon was tattooed. Harmonic scalpel was then used to take down the lateral peritoneal attachments of the right colon. This was extended down to the junction with the terminal ileum and this dissection was carried out up to and around the hepatic flexure to improve mobilization. Once sufficient mobilization was performed, the appendix was grasped with a bowel grasper and would be eventually used for retraction of the specimen through a midline incision which was then made. A small midline incision was made using a #15 blade. Bovie electrocautery was then used dissect down through the subcutaneous tissue down to the level of fascia. The fascia was then incised. The abdomen was entered without incident. The right colon specimen was then delivered up and out through the incision. Proximal and distal resection points were selected. Bowel clamps were placed proximally and distally. JOSE 75 stapler was used to transect the colon as well as the small bowel. A LigaSure impact device was then used to take down the mesentery. The specimen was then free and was then taken off the field. Specimen was labeled right colectomy. The anastomosis was then created by first using an Allis clamp on a corner of each staple line. Metzenbaum scissors were then used to excise each corner and enter the bowel. The JOSE stapler was then inserted into each limb of the bowel. The 2 pieces of the stapler were then brought together and clamped down. The stapler was then fired creating the anastomosis. This was performed without incident. 3 Allis clamps were then placed on the open end of the anastomosis and then a TA stapler was fired across the open end of the anastomosis. The crotch of the anastomosis was then reinforced using 3-0 Vicryl. 3-0 Vicryl was then used to close the mesenteric defect in a running manner. This closed the mesenteric defect nicely. The anastomosis appeared healthy and pink. It was widely patent. Hemostasis was excellent. There was returned back into the abdomen. Omentum was then covered over the bowel and then the abdomen was then irrigated with a liter of warm saline. This irrigation fluid was then suctioned out. The midline incision was then closed using a #1 looped PDS. This closed the fascia nicely. Additional local anesthetic containing Exparel was then injected along the incision line. The incision line was then irrigated and then closed with 3-0 Vicryl and then 4-0 Vicryl was run in the skin. 4-0 Vicryl was also used to close the 2 trocar sites. Skin glue was applied as dressing along with a Mepilex dressing along the midline. Patient was awakened from anesthesia. Abdominal binder was placed. He was taken to recovery in good condition A CALL WORKER was utilized as a assistant analyst. His role included assistance with positioning the patient, holding the camera, retraction, assistance with creation of the anastomosis as well as assistance with closure. Surgical Findings: see operative note Complications Complications: No Admit VTE Documentation VTE Present on Admission: No VTE Mechan Device Prophylaxis: SCD's VTE Pharm Prophylaxis ordered?: Yes
--- NOTE | 2025-02-14 10:04 | PCM.POST.ANE ---
Anesthesia: Postop Eval I Current Vital Signs Temperature: 97.6 F Pulse Rate: 82 Blood Pressure: 111/61 Respiratory Rate: 16 Pulse Ox: 96 Oxygen Delivery Method: Room Air Assessment Airway patent: Yes Spontaneous unlabored respirations: Yes Mental status: Awake nausea: No Vomiting: No Anesthesia Complication: No Fluid Hydration Crystalloid volume administer (ml): 1,800 Total IV fluid infused: 1,800 Progress Note Anesthesia document: Postop Eval 1 completed: Yes
[2025-02-14 11:03] LABS: Bedside Glucose 160 mg/dL (74-106)
--- NOTE | 2025-02-14 11:10 | POSTOPAN2_ITS ---
Anesthesia Postop Eval I Sum Postop Eval Completion status Anesthesia document: Postop Eval 1 completed: Yes Anesthesia Postop Eval I Summary Anesthesia Postop Eval I Summary: Anesthesia Postop Eval I: Assessment Summary Airway patent Yes 02/14/25 10:05 [email or web address] [email or web address] Spontaneous unlabored Yes 02/14/25 10:05 FLOOR [email or web address] respirations Mental status Awake 02/14/25 10:05 FLOOR [email or web address] nausea No 02/14/25 10:05 FLOOR [email or web address] Vomiting No 02/14/25 10:05 FLOOR [email or web address] Anesthesia Postop Eval I: Fluid Summary Crystalloid volume administer 1,800 02/14/25 10:05 FLOOR [email or web address] (ml) Colloids volume administered ( ml) Blood Product volume administered (ml) Total IV fluid infused 1,800 02/14/25 10:05 FLOOR [email or web address] Anesthesia Postop Eval I: Summary Notes Anesthesia Complication No 02/14/25 10:05 [email or web address] [email or web address] Anesthesia Complication Comment: Post-operative progress note Anesthesia: Postop Eval II Evaluation Mental status: Awake Pain Level: 0 nausea: No Vomiting: No
--- NOTE | 2025-02-14 11:10 | PCM.POSTANE2 ---
Anesthesia Postop Eval I Sum Postop Eval Completion status Anesthesia document: Postop Eval 1 completed: Yes Anesthesia Postop Eval I Summary Anesthesia Postop Eval I Summary: Anesthesia Postop Eval I: Assessment Summary Airway patent Yes 02/14/25 10:05 COLLECTION SYSTEMS [email or web address] Spontaneous unlabored Yes 02/14/25 10:05 COLLECTION SYSTEMS [email or web address] respirations Mental status Awake 02/14/25 10:05 COLLECTION SYSTEMS [email or web address] nausea No 02/14/25 10:05 COLLECTION SYSTEMS [email or web address] Vomiting No 02/14/25 10:05 COLLECTION SYSTEMS [email or web address] Anesthesia Postop Eval I: Fluid Summary Crystalloid volume administer 1,800 02/14/25 10:05 COLLECTION SYSTEMS [email or web address] (ml) Colloids volume administered ( ml) Blood Product volume administered (ml) Total IV fluid infused 1,800 02/14/25 10:05 COLLECTION SYSTEMS [email or web address] Anesthesia Postop Eval I: Summary Notes Anesthesia Complication No 02/14/25 10:05 COLLECTION SYSTEMS [email or web address] Anesthesia Complication Comment: Post-operative progress note Anesthesia: Postop Eval II Evaluation Mental status: Awake Pain Level: 0 nausea: No Vomiting: No
[2025-02-14] MEDS: Docusate Sodium 100 MG Capsule PO ×2 (12:26→22:06)
[2025-02-14] MEDS: Ketorolac 15 MG/ML Vial IV ×2 (12:26→17:54)
[2025-02-14] MEDS: 0.9% Saline Lock 10 ML Syringe IV (17:55)
[2025-02-15 00:19] VITALS: BP 99/73; PULSE 66; RESP 18; TEMP 36.7; O2SAT 97
[2025-02-15] MEDS: Ketorolac 15 MG/ML Vial IV ×4 (00:28→17:44)
[2025-02-15] MEDS: Acetaminophen 500 MG Tablet 1000 MG PO ×4 (00:28→17:44)
[2025-02-15 05:43] VITALS: BP 101/70; PULSE 78; RESP 18; TEMP 36.9; O2SAT 97
[2025-02-15 06:24] LABS: Absolute Lymphocyte Count 1.74 X10^3/uL (0.83-4.51); Absolute Neutrophil Count 8.4 X10^3/uL (2.0-7.7); Basophil# 0.02 X10^3/uL; Basophil% 0.2 % (0-1); Eosinophil# 0.05 X10^3/uL; Eosinophils% 0.5 % (0-5); Hematocrit 35.6 % (40-54); Hemoglobin 11.9 g/dL (13.0-16.5); Lymphocyte # 1.74 X10^3/ul (0.83-4.51); Lymphocyte % 16.2 % (19-41); Mean Corp Hgb Conc 33.4 g/dL (32-36); Mean Corpuscular Hgb 30.2 pg (27.0-32.0); Mean Corpuscular Volume 90.4 fL (80-94); Mean Platelet Vol. 10.3 fl (6.2-12.0); Monocyte# 0.49 X10^3/uL; Monocyte% 4.6 % (0-10); NRBC Flagged by Analyzer 0 % (0-5); Neutrophil % 78.1 % (47-70); Platelet Count 260 K/mm3 (150-450); RBC Distribution Width CV 13.1 % (11.6-14.6); Red Blood Count 3.94 M/mm3 (4.6-6.2); White Blood Count 10.7 K/mm3 (4.4-11.0)
[2025-02-15 06:35] LABS: Anion Gap 10 (5-15); BUN 13 mg/dL (4-19); BUN/Creat Ratio 10.7 RATIO (10-20); Calcium,Total 8.5 mg/dL (7.6-11.0); Carbon Dioxide 22.3 mmol/L (21.0-32.0); Chloride 104 mmol/L (98-108); Creatinine, Serum 1.21 mg/dL (0.70-1.20); EST Glomerular Filtration Rate 68 (>60); Estimated Creatinine Clearance 77.04 ml/min (50-250); Glucose 119 mg/dL (70-99); Potassium 3.5 mmol/L (3.3-5.1); Sodium Level 136 mmol/L (133-145)
[2025-02-15 06:39] VITALS: O2SAT 94
--- NOTE | 2025-02-15 07:46 | PN.SURG_ITS ---
Subjective Subjective Patient evaluated resting comfortably in bed. He notes passing flatus and having a small liquidy bowel movement last night. He denies any nausea, vomiting, fever. He notes very minimal amount of incisional discomfort. He has been ambulating in the hallway multiple times. He is urinating well. Tolerating clear liquids. Objective Data Objective Data Vital Signs: Vital Signs Temp Pulse Resp BP Pulse Ox O2 Del Method O2 Flow Rate 98.5 F 78 18 101/70 97 Room Air 4 02/15/25 05:43 02/15/25 05:43 02/15/25 05:43 02/15/25 05:43 02/15/25 05:43 02/15/25 05:43 02/14/25 11:42 Oxygen Flow Rate (L/min) 4 Oxygen Delivery Method Room Air Weight: 211 lb 10.3 oz Body Mass Index (BMI) 28.7 Intake & Output: Intake and Output for Last 24 Hours 02/13/25 02/14/25 02/15/25 23:59 23:59 23:59 Intake Total 2502 / 2502 1146.67 / 1146.67 Output Total 800 / 800 Balance 1702 / 1702 1146.67 / 1146.67 Lab / Micro Data 02/15/25 04:48 02/15/25 04:48 Labs: Laboratory Results - last 24 hr 02/14/25 10:32: POC Glucose 160 H 02/15/25 04:48: WBC 10.7, RBC 3.94 L, Hgb 11.9 L, Hct 35.6 L, MCV 90.4, MCH 30.2, MCHC 33.4, RDW Std Deviation 43.0, RDW Coeff of Cuca 13.1, Plt Count 260, MPV 10.3, Immature Gran % (Auto) 0.400, Neut % (Auto) 78.1 H, Lymph % (Auto) 16.2 L, [place] % (Auto) 4.6, Eos % (Auto) 0.5, Baso % (Auto) 0.2, Absolute Neuts (auto) 8.4 H, Absolute Lymphs (auto) 1.74, Nucleated RBC % 0, Sodium 136, Potassium 3.5, Chloride 104, Carbon Dioxide 22.3, Anion Gap 10, BUN 13, C reatinine 1.21 H, Estim Creat Clear Calc 77.04, Est GFR (MDRD) Non-Af 68, BUN/Creatinine Ratio 10.7, Glucose 119 H, Calcium 8.5 Physical Exam GI GI Narrative: Abdomen- soft, slight tenderness in the right lower quadrant. Positive bowel sounds. Incisions c/d/i. No erythema or infection noted. Assessment & Plan Assessment/Plan (1) Colon cancer: PLAN: I am following this patient in conjunction with Dr. Gracia. He will independently evaluate this patient. s/p laparoscopic right hemicolectomy POD#1 Labs reviewed. No changes Increase diet to full liquids this morning Continue I.S. and ambulation Excellent progress We will continue to monitor this patient Likely discharge tomorrow Charges/Coding Visit Charges Inpatient E&M: 83905 Subs Hosp L1 (no charge; post-op)
[2025-02-15 09:30] VITALS: BP 109/71; PULSE 82; RESP 16; TEMP 37.1; O2SAT 95
[2025-02-15] MEDS: Enoxaparin 40 MG/0.4 ML Syringe SC (09:33)
[2025-02-15] MEDS: Ensure Surgery 237 ML LIQUID PO ×3 (09:36→17:44)
--- NOTE | 2025-02-15 13:38 | DS.PCM_ITS ---
Documented by User: Dr. Kyle Gracia MD 02/15/25 13:45 Providers Date of Admission: 02/14/25 Primary Care Physician: Leland Scott MD Reason For Visit: Laparoscopic, Right Delta Colectomy w/anatomoses-ER Diagnosis Discharge Diagnosis (1) Colon cancer: Status: Acute Code(s): C18.9 - Malignant neoplasm of colon, unspecified Plan: I am following this patient in conjunction with Dr. Gracia. He will independently evaluate this patient. s/p laparoscopic right hemicolectomy POD#1 Labs reviewed. No changes Increase diet to full liquids this morning Continue I.S. and ambulation Excellent progress We will continue to monitor this patient Likely discharge tomorrow Medications at Discharge Home Medications glipizide 5 mg tablet 5 mg PO QDAY DIABETES 11/10/24 metformin 500 mg tablet 500 mg PO BID DIABETES 11/10/24 Hospital Course Operations colectomy (Laparoscopic right hemicolectomy with reanastomosis) Summary of Care Provided Minutes Spent on Discharge: 15 Hospital Course: Patient is a 59-year-old male who recently underwent screening colonoscopy and was found to have a polyp in the cecum. This was about a 2 to 2-1/2 cm polyp. This was removed by snare polypectomy however pathology came back as having a small focus of invasive cancer. As a result, I recommended laparoscopic right hemicolectomy as treatment. We discussed the details of the planned procedure and he wished to proceed. Surgery was performed successfully. He has had a fairly unremarkable hospital course. He began passing flatus and had a bowel movement by postoperative day #1. Diet was advanced which she seems to be tolerating well. Physical Exam Narrative He is alert and oriented x 3. He is in no acute distress. Abdomen is soft and appropriately tender. Incision is clean dry and intact. Abdominal binder is in place Weight / BMI Weight Weight: 211 lb 10.3 oz Body Mass Index (BMI) 28.7 ABG / Lab / Microbiology Data 02/15/25 04:48 02/15/25 04:48 Laboratory: Laboratory Results - last 24 hr 02/15/25 04:48: WBC 10.7, RBC 3.94 L, Hgb 11.9 L, Hct 35.6 L, MCV 90.4, MCH 30.2, MCHC 33.4, RDW Std Deviation 43.0, RDW Coeff of Cuca 13.1, Plt Count 260, MPV 10.3, Immature Gran % (Auto) 0.400, Neut % (Auto) 78.1 H, Lymph % (Auto) 16.2 L, [place] % (Auto) 4.6, Eos % (Auto) 0.5, Baso % (Auto) 0.2, Absolute Neuts (auto) 8.4 H, Absolute Lymphs (auto) 1.74, Nucleated RBC % 0, Sodium 136, Potassium 3.5, Chloride 104, Carbon Dioxide 22.3, Anion Gap 10, BUN 13, C reatinine 1.21 H, Estim Creat Clear Calc 77.04, Est GFR (MDRD) Non-Af 68, BUN/Creatinine Ratio 10.7, Glucose 119 H, Calcium 8.5 D/C Instructions Discharge Diet: Light diet - advance as tolerated Discharge Activity: Return to Normal Activity and May Shower May shower in (days): 1 Ice area for (Minutes): 30 Lifting Restrictions: Keep lifting under 20 pounds for 6 weeks Call your doctor if your incision/area has: Continuous Slow Oozing, Sudden Increased Bleeding, Increased Pain/ Swelling, Increased Redness, Foul Smelling Discharge and Swelling at the incision site Call your doctor if you observe: Fever of 101 or Higher Cleanse incision/area with: Soap & Water DC O2, CPAP, BIPAP Needs Home O2 Discharge instructions: No DC home with Oxygen: No Please Follow Up With: Kyle Gracia MD When: 7 to 10 days Meaningful Use Info Meaningful Use Meaningful Use Diagnoses (Choose all that apply): None applicable Ischemic Stroke Statin Dosing Therapy Reference: STATIN DOSE THERAPY REFERENCE: * Patients > 75 years receive moderate or high dose statin therapy. * Patients 75 years or YOUNGER should receive HIGH intensity statin dose unless contraindicated. You will be required to document reason for non-treatment if statin daily dose does not meet guidelines. HIGH DOSE STATIN THERAPY DAILY Atorvastatin > than or = to 40 mg Rosuvastatin > than or = to 20 mg Amlodipine + Atorvastatin > than or = to 2.5/40 mg Ezetimibe + Simvastatin 10/80 mg Simvastatin 80mg Discharge Plan Admission Admit Date/Time: 02/14/25 16:26 Primary Reason for Your Visit: Colon cancer Attending Provider: Kyle Gracia Primary Care Provider: Leland Scott Discharge Orders/Prescriptions Prescriptions: Continued glipizide 5 mg tablet 5 mg PO QDAY metformin 500 mg tablet 500 mg PO BID Discontinued metronidazole 500 mg tablet 500 mg PO .COMPLEX Qty: 6 0RF Rx Instructions: Take 2 (two) tablets at 1300, 1500, 2300 neomycin 500 mg tablet 500 mg PO .COMPLEX Qty: 6 0RF Rx Instructions: Take two (2) 500 mg tablets PO at 1300, 1500, 2300 Referrals / Follow Up: Leland Scott MD [Primary Care Provider] - Disposition Disposition (needs filled in before D/C Order can be placed): Home, Self Care Documented by User: Dr. Archie Guillermo MD 02/16/25 10:11 Providers Date of Admission: 02/14/25 Reason For Visit: Laparoscopic, Right Delta Colectomy w/anatomoses-ER Diagnosis Discharge Diagnosis (1) Colon cancer: Status: Acute Code(s): C18.9 - Malignant neoplasm of colon, unspecified Medications at Discharge Home Medications glipizide 5 mg tablet 5 mg PO QDAY DIABETES 11/10/24 metformin 500 mg tablet 500 mg PO BID DIABETES 11/10/24 Hospital Course Summary of Care Provided Hospital Course: Patient is a 59-year-old male who recently underwent screening colonoscopy and was found to have a polyp in the cecum. This was about a 2 to 2-1/2 cm polyp. This was removed by snare polypectomy however pathology came back as having a small focus of invasive cancer. As a result, I recommended laparoscopic right hemicolectomy as treatment. We discussed the details of the planned procedure and he wished to proceed. Surgery was performed successfully. He has had a fairly unremarkable hospital course. He began passing flatus and had a bowel movement by postoperative day #1. Diet was advanced which he seems to be tolerating well. Weight / BMI Weight Weight: 211 lb 10.3 oz Body Mass Index (BMI) 28.7 ABG / Lab / Microbiology Data 02/15/25 04:48 02/15/25 04:48 Laboratory: Laboratory Results - last 24 hr 02/15/25 04:48: WBC 10.7, RBC 3.94 L, Hgb 11.9 L, Hct 35.6 L, MCV 90.4, MCH 30.2, MCHC 33.4, RDW Std Deviation 43.0, RDW Coeff of Cuca 13.1, Plt Count 260, MPV 10.3, Immature Gran % (Auto) 0.400, Neut % (Auto) 78.1 H, Lymph % (Auto) 16.2 L, [place] % (Auto) 4.6, Eos % (Auto) 0.5, Baso % (Auto) 0.2, Absolute Neuts (auto) 8.4 H, Absolute Lymphs (auto) 1.74, Nucleated RBC % 0, Sodium 136, Potassium 3.5, Chloride 104, Carbon Dioxide 22.3, Anion Gap 10, BUN 13, C reatinine 1.21 H, Estim Creat Clear Calc 77.04, Est GFR (MDRD) Non-Af 68, BUN/Creatinine Ratio 10.7, Glucose 119 H, Calcium 8.5 Discharge Plan Admission Admit Date/Time: 02/14/25 16:26 Primary Reason for Your Visit: Colon cancer Attending Provider: Kyle Gracia Primary Care Provider: Leland Scott Discharge Orders/Prescriptions Prescriptions: Continued glipizide 5 mg tablet 5 mg PO QDAY metformin 500 mg tablet 500 mg PO BID Discontinued metronidazole 500 mg tablet 500 mg PO .COMPLEX Qty: 6 0RF Rx Instructions: Take 2 (two) tablets at 1300, 1500, 2300 neomycin 500 mg tablet 500 mg PO .COMPLEX Qty: 6 0RF Rx Instructions: Take two (2) 500 mg tablets PO at 1300, 1500, 2300 Referrals / Follow Up: Leland Scott MD [Primary Care Provider] - Disposition Disposition (needs filled in before D/C Order can be placed): Home, Self Care
--- NOTE | 2025-02-15 14:20 | CASEMGMT ---
DIONISIO NICHOLAS Assessment: Face to Face with pt for initial transition planning/care coordination assessment. DIONISIO NICHOLAS introduced self and role at [facility], pt voices understanding and consents to assessment. Pt is A&O x4 and answers all questions appropriately at this time. Pt lying in bed in no distress. Care providers, pharmacy, and demographics verified/updated. Admitting Dx: R tan colectomy Strata Score: 1 PCP:Sonia Specialists:[place], KATHERINE Garvin Pharmacy: [facility] Insurance: [employer] Prescription Benefit: yes LNOK: Marly Kang, sig other Living Arrangements: Pt lives with sig other in a two story home with no steps to enter. Pt reports he was I in ADL/IADLs prior to surgery and was still working. Pt denies concerns at home. Transportation: Pt drives self and denies concerns with transportation. DME:BGM with sufficient strips and lancets HHC/SNF: Denies hx of Pt states no concerns with going home at time of dc. Pt states no further concerns/needs. CM to follow. Advised pt to ask CM if any further questions/concerns/needs arise, voices understanding. Pt Goal: Home Plan: Home Freddy NICHOLE CM
[2025-02-15 14:51] VITALS: BP 122/66; PULSE 89; RESP 16; TEMP 37.1; O2SAT 97
[2025-02-15 21:06] VITALS: BP 112/69; PULSE 82; RESP 18; TEMP 36.9; O2SAT 95
[2025-02-15] MEDS: Docusate Sodium 100 MG Capsule PO (21:10)
[2025-02-16] MEDS: Acetaminophen 500 MG Tablet 1000 MG PO ×2 (00:15→06:19)
[2025-02-16 04:52] VITALS: BP 109/71; PULSE 74; RESP 18; TEMP 36.8; O2SAT 96
[2025-02-16 08:49] VITALS: BP 111/71; PULSE 76; RESP 18; TEMP 36.8; O2SAT 95
[2025-02-16] MEDS: Ensure Surgery 237 ML LIQUID PO (08:57)
[2025-02-16] MEDS: Enoxaparin 40 MG/0.4 ML Syringe SC (08:57)
--- NOTE | 2025-02-16 10:12 | PN.SURG_ITS ---
Subjective Subjective Patient tolerated full liquid diet overnight. He is starting transitional diet today. Objective Data Objective Data Vital Signs: Vital Signs Temp Pulse Resp BP Pulse Ox O2 Del Method O2 Flow Rate 98.3 F 76 18 111/71 95 Room Air 4 02/16/25 08:49 02/16/25 08:49 02/16/25 08:49 02/16/25 08:49 02/16/25 08:49 02/16/25 08:49 02/14/25 11:42 Oxygen Flow Rate (L/min) 4 Oxygen Delivery Method Room Air Weight: 211 lb 10.3 oz Body Mass Index (BMI) 28.7 Intake & Output: Intake and Output for Last 24 Hours 02/14/25 02/15/25 02/16/25 23:59 23:59 23:59 Intake Total 2502 / 2502 1146.67 / 1146.67 900 / 900 Output Total 800 / 800 1100 / 1100 Balance 1702 / 1702 46.67 / 46.67 900 / 900 Lab / Micro Data 02/15/25 04:48 02/15/25 04:48 Physical Exam Const oriented x3 and no apparent distress Resp normal respiratory effort GI soft to palpation and non-tender Assessment & Plan Assessment/Plan (1) Colon cancer: PLAN: Patient is doing really well after hemicolectomy. He is tolerating a transitional diet I will discharge him home. Follow-up with Dr. Gracia. Archie Guillermo MD Pager: [facility] [address] [place] [address], [address] [place] [address] Office:
--- NOTE | 2025-02-16 10:23 | PHA.DC.MR.R ---
Pharmacy [place] Med Reconciliation Pharmacy Service has performed discharge medication reconciliation for this patient. The patient's discharge medication list was reviewed for discrepancies and discrepancies were resolved. Medications at Discharge Home Medications glipizide 5 mg tablet 5 mg PO QDAY DIABETES 11/10/24 metformin 500 mg tablet 500 mg PO BID DIABETES 11/10/24
== END 2025-02-16 12:52 | disposition home or self-care (01) | DRG 331 ==
PROVIDERS: Anesthesiology; Admitting Provider Surgery; PCP Family Medicine; Referring Provider Surgery; Visit Provider Surgery
PROC: 0DTF4ZZ Resection of Right Large Intestine, Percutaneous Endoscopic Approach (ICD-10-PCS; CPT 44205; principal; 2025-02-14 07:10)
DX: C18.0 Malignant neoplasm of cecum (principal); E11.9 Type 2 diabetes mellitus without complications; F17.220 Nicotine dependence, chewing tobacco, uncomplicated; Z79.84 Long term (current) use of oral hypoglycemic drugs
CPT/HCPCS: 36415; 80048; 82962; 83735; 85025; 85027; 88309; 93005; 94668; 99406; A4216; J0666; J2405; J3475

== ENCOUNTER → 2025-05-16 | Outpatient (CLI) | payer BC, SELFPAY ==
--- NOTE | 2025-05-16 11:50 | RAD_ITS ---
EXAM: XR Chest, 2 Views CLINICAL INDICATION: COLON CA TECHNIQUE: Frontal and lateral views of the chest. COMPARISON: No relevant prior studies available. FINDINGS: LUNGS AND PLEURAL SPACES: Unremarkable. No consolidation. No pneumothorax. HEART: Unremarkable. No cardiomegaly. MEDIASTINUM: Unremarkable. Normal mediastinal contour. BONES/JOINTS: Unremarkable. No acute fracture. RAD/Chest PA and Lateral IMPRESSION: No acute cardiopulmonary process. Reading Location: [facility]
--- NOTE | 2025-05-16 11:50 | RAD_ITS ---
EXAM: XR Chest, 2 Views CLINICAL INDICATION: COLON CA TECHNIQUE: Frontal and lateral views of the chest. COMPARISON: No relevant prior studies available. FINDINGS: LUNGS AND PLEURAL SPACES: Unremarkable. No consolidation. No pneumothorax. HEART: Unremarkable. No cardiomegaly. MEDIASTINUM: Unremarkable. Normal mediastinal contour. BONES/JOINTS: Unremarkable. No acute fracture. RAD/Chest PA and Lateral IMPRESSION: No acute cardiopulmonary process. Reading Location: [facility]
== END | disposition home or self-care (01) ==
LOC: RAD 11:48
PROVIDERS: PCP Family Medicine; Referring Provider Internal Medicine Medical Oncology; Visit Provider Internal Medicine Medical Oncology
DX: C18.9 Malignant neoplasm of colon, unspecified (principal)
CPT/HCPCS: 71046